=== PATIENT | female | born 1975 | race Two or more races ===

== ENCOUNTER 2019-08-24 16:30 | Emergency (ER) | payer MEDICAID ==
[~2019-08-24] VITALS: Ht 167.6 cm; Wt 77.0 kg
[2019-08-24] MEDS ORDERED: KETOROLAC 60MG/2ML VIAL IM ONE (17:00)
[2019-08-24] MEDS ORDERED: CYCLOBENZAPRINE 10MG TABLET PO ONE (17:00)
[2019-08-24] MEDS ORDERED: DIAZEPAM 5 MG/ML 2ML CPJ IM ONE (17:00)
[2019-08-24] MEDS ORDERED: MORPHINE SULFATE 4 MG/ML CPJ (NOT FOR IM USE) IV STA (19:07)
[2019-08-24] MEDS ORDERED: ONDANSETRON HCL 4MG/2ML INJ IV STA (19:07)
[2019-08-24 20:46] VITALS: BP 140/91
== END 2019-08-24 20:49 | disposition home or self-care (01) ==
LOC: ER 16:30 → EDBD 16:30 → ER 20:49
DX: S33.5XXA Sprain of ligaments of lumbar spine, initial encounter (principal); X50.9XXA Other and unspecified overexertion or strenuous movements or postures, initial encounter; Y93.89 Activity, other specified; Y92.013 Bedroom of single-family (private) house as the place of occurrence of the external cause
CPT/HCPCS: 72100; 81025; 96372; 96374; 96375; 99283; J1885; J2270; J2405; J3360